=== PATIENT | male | born 1980 | race African-American/Black ===

== ENCOUNTER 2017-07-17 14:18 | Emergency (ER) | payer OTHER, SELFPAY ==
[2017-07-17 15:30] VITALS: BP 0/0; PULSE 0; RESP 0; TEMP -17.7; TEMP 0; O2SAT 0
== END 2017-07-17 15:32 | disposition left against medical advice (07) ==
PROVIDERS: Emergency Provider Nurse Practitioner Family
DX: Z53.29 Procedure and treatment not carried out because of patient's decision for other reasons (principal)
CPT/HCPCS: 99281

== ENCOUNTER 2017-07-23 19:04 | Emergency (ER) | payer OTHER, SELFPAY ==
[2017-07-23 20:49] VITALS: BP 131/68; PULSE 90; RESP 18; TEMP 37.4; O2SAT 99; BMI 25.8
--- NOTE | 2017-07-23 21:04 | HMH.EDUTC ---
[facility] [place] Disposition Clinical Impression: History of immunosuppression therapy, Bloody discharge from penis UTI (urinary tract infection) Qualifiers: Urinary tract infection type: site unspecified Hematuria presence: with hematuria Qualified Code(s): N39.0 - Urinary tract infection, site not specified Disposition: Home, Self-Care Condition on Discharge: Good Instructions: DI for Urinary Tract Infection (UTI), DI for Dysuria -- Adult Additional Instructions: * Your urine was consistent with UTI but sexually transmitted disease can cause similar symptoms. Your bloody urethral discharge is VERY concerning. * I understand you and your are sexually active only with each other and your last STD check was in mar 2017 and normal but that you want testing, but not treatment, again tonight. You understand the risk of sexually transmitted diseases when immunosuppresed on your medication and agree to follow up. * You agree to Follow up tomorrow on part of the tests, 2-3 days on urine culture results and in 5-7 days for remainder of tests. * Avoid sexual activity until all rest results are back and discussed with you * Follow up immediately for new or worsening symptoms. * Start antibiotic and be sure to take for entire length of time prescribed unless told otherwise in follow up. Prescriptions: Ciprofloxacin HCl [Ciprofloxacin 500mg Tab] 500 mg PO BID #28 tab Time of Disposition: 21:31 Medical Decision Making Vital Signs: 07/23/17 20:49 07/23/17 21:53 Temperature 99.4 F 99.1 F Temperature Source Temporal Artery Scan Pulse Rate 85 Pulse Rate [Right Radial] 90 Respiratory Rate 18 16 Blood Pressure 126/78 Blood Pressure [Right Arm] 131/68 Blood Pressure Mean [Right Arm] 89 Blood Pressure Source [Right Arm] Automatic Cuff Blood Pressure Position [Right Arm] Sitting 02 Sat by Pulse Oximetry 99 Oxygen Delivery Method Room Air Room Air - Lab Data Lab results reviewed: Yes: I reviewed the patient's lab results. Lab Results 07/23/17 21:53: Urine Color Yellow, Urine Appearance Cloudy, Urine pH 7.0, Ur Specific [place] 1.030, Urine Protein 3+, Urine Glucose (UA) Negative, Urine Ketones Negative, Urine Blood 3+, Urine Nitrate Positive A, Urine Bilirubin Negative, Urine Urobilinogen 1, Ur Leukocyte Esterase 1+ A Orders (Tests/Meds): ORDERS Category Date Time Status Urine Culture Stat Micro 07/23/17 21:35 Received - Christopher Inquiry Pt receiving controlled substance: No - Reevaluation(s) Reevaluation #1: LENGTHY discussion re: treating for STIs. Pt and adamant no chance and agree to testing but not treatment today. Discussed risks associated that are higher due to immunosuppresent therapy. States + understanding but not changing mind. Accepts risks and agrees to follow up. [facility] [place] HPI - General Stated complaint: possible uti Time Seen by Provider: 07/23/17 21:04 Mode of Arrival: Family Vehicle Source of Information: Patient Limitations: No Limitations Description of Symptoms (Recalled from Triage Doc. by RN): PT C/O URGENCY,FREQUENCY, BURNING, PINK[place]-BROWN DISCHARGE WITH URINATION THAT STARTED 2-3 DAYS AGO. HEENT Symptoms (Recalled from RN notes): No Resp Symptoms (Recalled from RN notes): No Skin Symptoms (Recalled from RN notes): No MS Symptoms (Recalled from RN notes): No Functional Status (Recalled from RN notes): NA - History of Present Illness Provider Complaint: Here with c/o dysuria x 2-3 days with blood tinged penile discharge in mornings that is more brown throughout the day. Hx of UTIs typically during plaque psoriasis flares. Reports this feels like that. Urinary frequency now with dark, foul, cloudy urine. Currently flared. On enbrel. Denies possibility of STI. Checked every 6 months w/ immunosuppresant. Last check Mar 2017. Negative. pt and spouse adament no other partners and no way . No fever, aches, chills. Left flank pain day before yesterday but attributed it to having hurt b
--- NOTE | 2017-07-23 21:19 | ED_ITS ---
[facility] [place] Impression: History of immunosuppression therapy, Bloody discharge from penis UTI (urinary tract infection) Qualifiers: Urinary tract infection type: site unspecified Hematuria presence: with hematuria Qualified Code(s): N39.0 - Urinary tract infection, site not specified Disposition: Home, Self-Care Condition on Discharge: Good Instructions: DI for Urinary Tract Infection (UTI), DI for Dysuria -- Adult Additional Instructions: * Your urine was consistent with UTI but sexually transmitted disease can cause similar symptoms. Your bloody urethral discharge is VERY concerning. * I understand you and your are sexually active only with each other and your last STD check was in mar 2017 and normal but that you want testing, but not treatment, again tonight. You understand the risk of sexually transmitted diseases when immunosuppresed on your medication and agree to follow up. * You agree to Follow up tomorrow on part of the tests, 2-3 days on urine culture results and in 5-7 days for remainder of tests. * Avoid sexual activity until all rest results are back and discussed with you * Follow up immediately for new or worsening symptoms. * Start antibiotic and be sure to take for entire length of time prescribed unless told otherwise in follow up. Prescriptions: Ciprofloxacin HCl [Ciprofloxacin 500mg Tab] 500 mg PO BID #28 tab Time of Disposition: 21:31 Medical Decision Making Vital Signs: 07/23/17 20:49 07/23/17 21:53 Temperature 99.4 F 99.1 F Temperature Source Temporal Artery Scan Pulse Rate 85 Pulse Rate [Right Radial] 90 Respiratory Rate 18 16 Blood Pressure 126/78 Blood Pressure [Right Arm] 131/68 Blood Pressure Mean [Right Arm] 89 Blood Pressure Source [Right Arm] Automatic Cuff Blood Pressure Position [Right Arm] Sitting 02 Sat by Pulse Oximetry 99 Oxygen Delivery Method Room Air Room Air - Lab Data Lab results reviewed: Yes: I reviewed the patient's lab results. Lab Results 07/23/17 21:53: Urine Color Yellow, Urine Appearance Cloudy, Urine pH 7.0, Ur Specific [place] 1.030, Urine Protein 3+, Urine Glucose (UA) Negative, Urine Ketones Negative, Urine Blood 3+, Urine Nitrate Positive A, Urine Bilirubin Negative, Urine Urobilinogen 1, Ur Leukocyte Esterase 1+ A Orders (Tests/Meds): ORDERS Category Date Time Status Urine Culture Stat Micro 07/23/17 21:35 Received - Christopher Inquiry Pt receiving controlled substance: No - Reevaluation(s) Reevaluation #1: LENGTHY discussion re: treating for STIs. Pt and adamant no chance and agree to testing but not treatment today. Discussed risks associated that are higher due to immunosuppresent therapy. States + understanding but not changing mind. Accepts risks and agrees to follow up. [facility] [place] - General Stated complaint: possible uti Time Seen by Provider: 07/23/17 21:04 Mode of Arrival: Family Vehicle Source of Information: Patient Limitations: No Limitations Description of Symptoms (Recalled from Triage Doc. by RN): PT C/O URGENCY, FREQUENCY, BURNING, PINK[place]-BROWN DISCHARGE WITH URINATION THAT STARTED 2-3 DAYS AGO. HEENT Symptoms (Recalled from RN notes): No Resp Symptoms (Recalled from RN notes): No Skin Symptoms (Recalled from RN notes): No MS Symptoms (Recalled from RN notes): No Functional Status (Recalled from RN notes): NA - History of Present Illness Provider Complaint: Here with c/o d
[2017-07-23 21:53] VITALS: BP 126/78; PULSE 85; RESP 16; TEMP 37.3; O2SAT 100
[2017-07-23 21:57] LABS: Apearance,Urine Cloudy (Clear); Color,Urine Yellow (Yellow); Glucose,Urine (UA) Negative (Negative); Protein,Urine 3+ (Negative)
[2017-07-23 22:23] LABS: Bilirubin,Urine Negative (Negative); Blood, Urine 3+ (Negative); Ketones,Urine Negative (Negative); UTC Leukocyte Esterase,Urine 1+ (Negative); UTC Nitrate,Urine Positive (Negative); Urobilinogen,Urine 1 EU/dl (0.2)
[2017-07-27 11:51] LABS: Neisseria gonorrhoeae, NAA Negative (Negative)
== END 2017-07-23 21:53 | disposition home or self-care (01) ==
PROVIDERS: Emergency Provider Nurse Practitioner Family
DX: N39.0 Urinary tract infection, site not specified (principal); R36.9 Urethral discharge, unspecified; Z92.25 Personal history of immunosuppression therapy; F17.210 Nicotine dependence, cigarettes, uncomplicated; L40.0 Psoriasis vulgaris
CPT/HCPCS: 81003; 87086; 87088; 87186; 87210; 87220; 87491; 87591; 99203